=== PATIENT | female | born 1945 | race Caucasian/White ===

== ENCOUNTER → 2023-10-20 07:31 | Outpatient (REF) | payer MEDICARE, OTHER, SELFPAY ==
[2023-10-20 10:53] LABS: % Basophils 0.4 % (0-2); % Eosinophils 1.4 % (0-6); % Immature Granulocytes 0.1 % (0-0.5); % Lymphocytes 31.3 % (20.5-51.1); % Monocytes 8.9 % (1.7-9.3); % Neutrophils 57.9 % (42.2-75.2); Absolute Eosinophils 0.1 10^3/uL (0-0.7); Absolute Lymphocytes 2.2 10^3/uL (1.2-3.4); Absolute Monocytes 0.6 10^3/uL (0.1-0.6); Hematocrit 43.7 % (37.0-47.0); Hemoglobin 14.2 g/dL (12.0-16.0); Mean Corp Hgb Conc. 32.5 g/dL (33.0-37.0); Mean Corpuscular Hgb 30.1 pg (27.0-31.0); Mean Corpuscular Volume 92.8 fL (81.0-99.0); Mean Platelet Volume 10.7 fL (7.4-10.4); Nucleated Red Blood Cells % 0 %; Platelet Count 170 10^3/uL (130-400); Red Blood Cell Count 4.71 10^6/uL (4.20-5.40); Red Cell Dist. Width 13.1 % (11.5-14.5); White Blood Cell Count 6.9 10^3/uL (4.8-10.8)
[2023-10-20 11:03] LABS: ALT (SGPT) 15 U/L (0-35); AST (SGOT) 29 U/L (14-36); Albumin 4.2 g/dl (3.5-5.0); Alkaline Phosphatase 86 U/L (38-126); Blood Urea Nitrogen 17 mg/dl (7-17); Calcium 9.6 mg/dl (8.4-10.2); Carbon Dioxide 29 mmol/L (22-30); Chloride 103 mmol/L (98-107); Glucose 97 mg/dl (70-99); Potassium 4.4 mmol/L (3.5-5.1); Sodium 139 mmol/L (135-145); Total Bilirubin 0.9 mg/dl (0.2-1.3); Total Protein 7.2 g/dl (6.3-8.2); eGFR > 60.00
[2023-10-20 11:26] LABS: TSH Reflex To Free T4 1.79 uIU/ml (0.47-4.68)
== END ==
LOC: HWLAB 07:31
PROVIDERS: ATTENDING PHYSICIAN Internal Medicine
DX: R09.82 Postnasal drip (principal); R09.89 Other specified symptoms and signs involving the circulatory and respiratory systems; R63.4 Abnormal weight loss; G25.0 Essential tremor
CPT/HCPCS: 36415; 71046; 80053; 84443; 85025

== ENCOUNTER → 2024-02-18 09:23 | Outpatient (REF) | payer MEDICARE, OTHER, SELFPAY | LOC: HWRAD 09:23 | PROVIDERS: ATTENDING PHYSICIAN Internal Medicine | DX: R05.3 Chronic cough (principal) | CPT/HCPCS: 71250 ==

== ENCOUNTER → 2024-03-08 12:24 | Outpatient (REF) | payer MEDICARE, OTHER, SELFPAY | LOC: HWRCS 12:24 | PROVIDERS: ATTENDING PHYSICIAN Internal Medicine | DX: R93.89 Abnormal findings on diagnostic imaging of other specified body structures (principal); I51.7 Cardiomegaly; I25.10 Atherosclerotic heart disease of native coronary artery without angina pectoris | CPT/HCPCS: 93306 ==

== ENCOUNTER → 2024-06-29 12:10 | Outpatient (REF) | payer MEDICARE, OTHER, SELFPAY ==
[2024-06-29 16:31] LABS: Folate 12.3 ng/ml (2.76-20); Vitamin B12 483 pg/ml (239-931)
[2024-07-01 13:48] LABS: Syphilis/T. pallidum Ab Reflex Negative (Negative)
== END ==
LOC: HWLAB 12:10
PROVIDERS: ATTENDING PHYSICIAN Internal Medicine
DX: G31.84 Mild cognitive impairment of uncertain or unknown etiology (principal); R41.3 Other amnesia
CPT/HCPCS: 36415; 82607; 82746; 86780

== ENCOUNTER → 2024-08-15 17:16 | Outpatient (REF) | payer MEDICARE, OTHER, SELFPAY | LOC: MRI 17:16 | PROVIDERS: ATTENDING PHYSICIAN Internal Medicine | DX: G31.84 Mild cognitive impairment of uncertain or unknown etiology (principal); R41.3 Other amnesia | CPT/HCPCS: 70553; A9575 ==

== ENCOUNTER → 2024-09-06 09:53 | Outpatient (REF) | payer MEDICARE, OTHER, SELFPAY | LOC: HWRCS 09:53 | PROVIDERS: ATTENDING PHYSICIAN Student in an Organized Health Care Education/Training Program; FAMILY PHYSICIAN Internal Medicine | DX: I31.39 Other pericardial effusion (noninflammatory) (principal) | CPT/HCPCS: 93306 ==

== ENCOUNTER → 2024-09-22 11:32 | Outpatient (REF) | payer MEDICARE, OTHER, SELFPAY ==
[2024-09-22 16:15] LABS: % Basophils 0.3 % (0-2); % Eosinophils 0.8 % (0-6); % Immature Granulocytes 0.3 % (0-0.5); % Lymphocytes 23.7 % (20.5-51.1); % Monocytes 8.2 % (1.7-9.3); % Neutrophils 66.7 % (42.2-75.2); Absolute Eosinophils 0.1 10^3/uL (0-0.7); Absolute Lymphocytes 1.5 10^3/uL (1.2-3.4); Absolute Monocytes 0.5 10^3/uL (0.1-0.6); Absolute Neutrophils 4.1 10^3/uL (1.4-6.5); Hematocrit 43.2 % (37.0-47.0); Hemoglobin 14.2 g/dL (12.0-16.0); Mean Corp Hgb Conc. 32.9 g/dL (33.0-37.0); Mean Corpuscular Hgb 30.6 pg (27.0-31.0); Mean Corpuscular Volume 93.1 fL (81.0-99.0); Mean Platelet Volume 10.8 fL (7.4-10.4); Nucleated Red Blood Cells % 0 %; Platelet Count 190 10^3/uL (130-400); Red Blood Cell Count 4.64 10^6/uL (4.20-5.40); Red Cell Dist. Width 13.2 % (11.5-14.5); White Blood Cell Count 6.2 10^3/uL (4.8-10.8)
[2024-09-22 16:34] LABS: ALT (SGPT) 25 U/L (0-35); AST (SGOT) 31 U/L (14-36); Albumin 4.5 g/dl (3.5-5.0); Alkaline Phosphatase 72 U/L (38-126); Blood Urea Nitrogen 15 mg/dl (7-17); Calcium 9.5 mg/dl (8.4-10.2); Carbon Dioxide 31 mmol/L (22-30); Chloride 103 mmol/L (98-107); Glucose 98 mg/dl (70-99); HDL Cholesterol 54 mg/dl; LDL Cholesterol, Calculated 85 mg/dl; Potassium 4.3 mmol/L (3.5-5.1); Sodium 143 mmol/L (135-145); Total Bilirubin 0.9 mg/dl (0.2-1.3); Total Cholesterol 151 mg/dl (50-199); Total Protein 7.2 g/dl (6.3-8.2); Triglyceride 63 mg/dl (10-149); Very Low Density Lipoprotein 12 mg/dl (0-30); eGFR > 60.00
[2024-09-22 17:06] LABS: TSH Reflex To Free T4 0.97 uIU/ml (0.47-4.68)
== END ==
LOC: HWLAB 11:32
PROVIDERS: ATTENDING PHYSICIAN Student in an Organized Health Care Education/Training Program; FAMILY PHYSICIAN Internal Medicine
DX: I31.39 Other pericardial effusion (noninflammatory) (principal); I25.10 Atherosclerotic heart disease of native coronary artery without angina pectoris
CPT/HCPCS: 36415; 80053; 80061; 84443; 85025

== ENCOUNTER → 2025-03-24 10:11 | Outpatient (REF) | payer MEDICARE, OTHER, SELFPAY ==
[2025-03-24 12:01] LABS: ALT (SGPT) 22 U/L (0-35); AST (SGOT) 28 U/L (14-36); Albumin 4.2 g/dl (3.5-5.0); Alkaline Phosphatase 83 U/L (38-126); Blood Urea Nitrogen 15 mg/dl (7-17); Calcium 9.3 mg/dl (8.4-10.2); Carbon Dioxide 31 mmol/L (22-30); Chloride 99 mmol/L (98-107); Glucose 89 mg/dl (70-99); HDL Cholesterol 59 mg/dl; LDL Cholesterol, Calculated 97 mg/dl; Potassium 4.2 mmol/L (3.5-5.1); Sodium 135 mmol/L (135-145); Total Protein 7.2 g/dl (6.3-8.2); Very Low Density Lipoprotein 9 mg/dl (0-30); eGFR > 60.00
== END ==
LOC: HWLAB 10:11
PROVIDERS: ATTENDING PHYSICIAN Internal Medicine
DX: E78.5 Hyperlipidemia, unspecified (principal)
CPT/HCPCS: 36415; 80053; 80061